=== PATIENT | female | born 1970 | race African-American/Black ===

== ENCOUNTER 2022-05-30 15:05 | Emergency (ER) | payer OTHER ==
[~2022-05-30] VITALS: Ht 160 cm; Wt 82.2 kg
[2022-05-30] MEDS ORDERED: PROPRANOLOL HCL20 MG (15:30)
[2022-05-30] MEDS ORDERED: CRESTOR10 MG PO (15:30)
[2022-05-30] MEDS ORDERED: LEXAPRO20 MG PO (15:30)
[2022-05-30] MEDS ORDERED: PANTOPRAZOLE SO40 MG PO (15:30)
[2022-05-30] MEDS ORDERED: LIDOCAINE HCL 2% LOCAL 20 ML VIAL INJ STA (16:11)
[2022-05-30] MEDS ORDERED: LIDOCAINE HCL 1% LOCAL INJ 20 ML VIAL INJ STA (16:11)
[2022-05-30] MEDS ORDERED: MUPIROCIN 2% OINT 22 GM TUBE TOP ONE (16:15)
[2022-05-30] MEDS ORDERED: ACETAMINOPHEN 325 MG TAB PO ONE (16:15)
[2022-05-30] MEDS ORDERED: CEPHALEXIN500 MG PO (16:20)
[2022-05-30] MEDS ORDERED: ACETAMINOPHEN500 MG PO (16:20)
[2022-05-30] MEDS ORDERED: IBUPROFEN200 MG PO (16:20)
== END 2022-05-30 16:40 | disposition home or self-care (01) ==
LOC: FSED 15:18
DX: L02.412 Cutaneous abscess of left axilla (principal); I10 Essential (primary) hypertension; E78.5 Hyperlipidemia, unspecified; K21.9 Gastro-esophageal reflux disease without esophagitis; J45.909 Unspecified asthma, uncomplicated; F17.210 Nicotine dependence, cigarettes, uncomplicated
CPT/HCPCS: 10060; 96372; 99283

== ENCOUNTER 2022-06-21 12:34 | Emergency (ER) | payer OTHER ==
[~2022-06-21] VITALS: Ht 160 cm; Wt 82.1 kg
[~2022-06-21 12:34] MED LIST: ACETAMINOPHEN500 MG PO; CEPHALEXIN500 MG PO; CRESTOR10 MG PO; IBUPROFEN200 MG PO; LEXAPRO20 MG PO; PANTOPRAZOLE SO40 MG PO; PROPRANOLOL HCL20 MG
[2022-06-21] MEDS ORDERED: XOPENEX0.63 MG/3 INH (13:39)
[2022-06-21 13:48] VITALS: BP 148/80
== END 2022-06-21 13:47 | disposition home or self-care (01) ==
LOC: FSED 12:53
DX: R53.1 Weakness (principal); J20.9 Acute bronchitis, unspecified; R05.9 Cough, unspecified; D64.9 Anemia, unspecified; I10 Essential (primary) hypertension; E78.5 Hyperlipidemia, unspecified; J45.909 Unspecified asthma, uncomplicated; K21.9 Gastro-esophageal reflux disease without esophagitis; I34.1 Nonrheumatic mitral (valve) prolapse; F32.A Depression, unspecified
CPT/HCPCS: 71045; 99284